=== PATIENT | male | born 1995 | race Caucasian/White ===

== ENCOUNTER 2021-04-18 02:15 | Emergency (ER) | payer MEDICAID, SELFPAY ==
--- NOTE | ~2021-04-18 | XR_ITS ---
EXAMINATION: XR HAND, RIGHT: 3 VIEWS CLINICAL INFORMATION: Pain status post fall COMPARISON: None XR/XR hand wrist RT FINDINGS/IMPRESSION: * Acute nondisplaced obliquely oriented fracture through the second proximal metacarpal metaphysis. * Acute nondisplaced obliquely oriented fracture through the third proximal metacarpal diametaphysis. * Acute minimally displaced transversely oriented fracture through the fourth metacarpal diaphysis. * No additional fractures. * Soft tissue swelling dorsal to the metacarpals. * No radiopaque foreign body.
[2021-04-18 02:24] VITALS: BP 114/72; PULSE 82; RESP 16; TEMP 37.2; O2SAT 98; BMI 31.0
[2021-04-18 04:18] VITALS: BP 106/73; PULSE 73; RESP 16; TEMP 36.7; O2SAT 96
[2021-04-18 05:49] VITALS: BP 105/58; PULSE 65; RESP 16; TEMP 36.6; O2SAT 99
--- NOTE | 2021-04-18 07:14 | ED_ITS ---
HPI - Extremity Problem General Chief complaint: Extremity Injury, Upper Stated complaint: broken hand Time Seen by Provider: 04/18/21 07:12 Source: patient Mode of arrival: ambulatory Limitations: no limitations History of Present Illness HPI Narrative: 26-year-old male came in for evaluation of right hand pain. Patient had a mechanical fall early this morning at 03:00, landed on his right hand causing pain to the right hand/wrist and swelling. Patient is right-hand. No head injury, no LOC. no C-spine tenderness Related Data Allergies Allergy/AdvReac Type Severity Reaction Status Date / Time No Known Allergies Allergy Verified 04/18/21 02:24 Review of Systems Review of Systems: All other systems are reviewed and are negative Constitutional: Reports as per HPI and Reports no additional constitutional complaints Eyes: Reports as per HPI and Reports no additional eye complaints Reports system reviewed and no additional complaints, except as documented Cardiovascular: Reports as per HPI and Reports no additional cardiovascular complaints Respiratory: Reports as per HPI and Reports no additional respiratory complaints Gastrointestinal: Reports as per HPI and Reports no additional gastrointestinal complaints Genitourinary: Reports no additional female genitourinary complaints Musculoskeletal: Reports no additional musculoskeletal complaints Skin/Breast: Reports system reviewed and no additional complaints, except as docu Psychiatric: Reports no additional psychiatric complaints Endocrine: Reports no additional endocrine complaints Hematologic/Lymphatic: Reports no additional hematologic/lymphatic complaints Allergic/Immunologic: Reports no additional allergic/immunologic complaints Reports system reviewed and no additional complaints, except as documented and Reports Abnormal speech present [facility] Past Medical History Medical History Asthma Social History Social History Advance Directives: No Advance Directives Information Provided: Yes Physical Exam Vital Signs: Vital Signs: Last Vital Signs Temp 97.9 F 04/18/21 05:49 Pulse 65 04/18/21 05:49 Resp 16 04/18/21 05:49 BP 105/58 L 04/18/21 05:49 Pulse Ox 99 04/18/21 05:49 Body Mass Index 31.0 Vital signs have been reviewed as appeared to be correct. Blood pressure normal. Heart rate normal. Respiration rate normal. Temperature normal. Oxygen saturation normal. Appearance: Alert. Oriented X3. No acute distress. Head: Normal external exam. Normocephalic. Atraumatic. No Willett signs noted. No raccoon eyes noted Eyes: PERRLA. EOMI. Conjunctiva and sclera normal. Eyelids normal. ENT: TM's Normal. Pharynx normal. Uvula midline. Moist mucous membranes. No tr ismus noted. No drooling noted. No muffled voice noted. Neck: Normal inspection. Neck supple. FROM. No adenopathy. Thyroid Normal. No meningeal signs. No neck mass noted. CVS: Normal heart rate and rhythm. Heart sound normal. No murmurs noted. Pulses normal throughout. Respiratory: No respiratory distress. Painless inspiration. Breath sounds normal. No wheezes/rales/rhonchi noted. Chest nontender. No accessory muscle usage noted or decreased air movement noted. Abdomen: Soft and nontender. Bowel sounds normal in all 4 quadrants. No distention noted. No organomegaly noted. No visible injury noted. Back: No CVA tenderness. Full range of motion noted. Skin: Skin warm and dry. Normal skin color. Normal skin turgor. No rashes/lesions/lacerations noted. Extremities: Right hand: Diffuse swelling of the right hand, tenderness over the metacarpal area diffusely, no apparent deformity. Neurovascularly intact. Neuro: Oriented X 3. Cranial nerve exam: II-XII are grossly intact No motor deficit. No sensory deficit. Reflexes normal. Course Course Course Narrative: Assessment and plan. 26-year-old male sustained a mechanical fall, had multiple metacarpal bones fracture as a result. Ice/NSAIDs/splint/follow-up with ortho. MDM - Extremity (Nontraumatic) Imaging Data Right hand/wrist x-ray: Radiologist's impression: *? Acute nondisplaced obliquely oriented frac ture through the second proximal metacarpal metaphysis. *? Acute nondisplaced obliquely oriented fracture through the third proximal metacarpal diametaphysis. *? Acute minimally displaced transversely oriented fracture through the fourth metacarpal diaphysis. *? No additional fractures. *? Soft tissue swelling dorsal to the metacarpals. *? No radiopaque foreign body. ? Discharge Plan Discharge Clinical Impression: Fracture of hand Patient Disposition: Home, Self-Care Instructions: Hand Fracture (ED) Referrals: Chelsey Potter MD [Physician] - 2 days
[2021-04-18] MEDS: Ibuprofen 600 MG TABLET PO (08:02)
== END 2021-04-18 08:06 | disposition home or self-care (01) ==
PROVIDERS: Emergency Provider Emergency Medicine
DX: S62.390A Other fracture of second metacarpal bone, right hand, initial encounter for closed fracture (principal); S62.392A Other fracture of third metacarpal bone, right hand, initial encounter for closed fracture; S62.394A Other fracture of fourth metacarpal bone, right hand, initial encounter for closed fracture; W19.XXXA Unspecified fall, initial encounter; Y93.9 Activity, unspecified; Y92.9 Unspecified place or not applicable; Y99.9 Unspecified external cause status
CPT/HCPCS: 73110; 73130; 99284

== ENCOUNTER 2021-04-24 08:18 | Outpatient (REF) | payer MEDICAID, SELFPAY ==
--- NOTE | ~2021-04-24 | XR_ITS ---
EXAMINATION: XR HAND, RIGHT CLINICAL INFORMATION: Right hand pain COMPARISON: 04/18/2021 TECHNIQUE: PA, lateral, and oblique views of the right hand. FINDINGS: Mineralization is normal. There is an essentially nondisplaced fracture through the proximal metaphysis of the second metacarpal. There is an essentially nondisplaced oblique fracture through the proximal metadiaphysis of the third metacarpal. There is a small adjacent ossicle on the volar aspect. There is an essentially nondisplaced fracture through the shaft of the fourth metacarpal now appearing in anatomic alignment. There is a fracture of the base of the fifth distal phalanx with a distracted fragment on the dorsal aspect. No other fractures are seen. There is no dislocation. The joint spaces are preserved. There is marked soft tissue swelling on the dorsum of the hand. XR/XR hand RT min 3V IMPRESSION: Essentially nondisplaced fractures of the second, third, and fourth metacarpals. Distracted fracture from the dorsal aspect of the base of the fifth proximal phalanx.
== END 2021-04-24 08:19 | disposition home or self-care (01) ==
LOC: HO.HOSX 08:18
PROVIDERS: Visit Provider Physician Assistant
DX: M20.011 Mallet finger of right finger(s) (principal); S62.308A Unspecified fracture of other metacarpal bone, initial encounter for closed fracture
CPT/HCPCS: 73130; 99202

== ENCOUNTER 2021-04-30 07:53 | Day surgery (SDC) | payer MEDICAID, SELFPAY ==
--- NOTE | 2021-04-29 09:32 | HO.ANESPROP2 ---
Documented by User: Tasha Barbosa NP 04/29/21 09:32 HPI - Anesthesia Eval Consult details Narrative: 26yo M for Right Finger Fx Closed Pinning small finger PMFSH Active Problems Active Problems: All Active Problems (Updated 04/26/21 @ 09:54 by Cristina Ca PA-C) Closed fracture of 4th metacarpal (Acute) Closed fracture of 3rd metacarpal (Acute) Closed fracture of 2nd metacarpal (Acute) Mallet deformity of right little finger (Acute) Past Medical History Medical History Asthma Surgical History Surgical History No pertinent past surgical history Social History Social History Alcohol intake: never Patient Tobacco Use Status: Former Tobacco user Quit Date: 4 yrs ago, vaping since Tobacco use type: Cigarette Use of substances other than those prescribed or required for medical reasons: Yes Substance Use Frequency: Daily Are you DNR?: No Advance Directives: No Advance Directives Information Provided: Yes Current occupational status: unemployed Current occupation: rt hand Meds Allergies Allergy/AdvReac Type Severity Reaction Status Date / Time No Known Allergies Allergy Verified 04/24/21 13:08 Exam Exam Date and Time: April 29, 2021 0932 Assessment and Plan Assessment Anesthesia Assessment: Chart Reviewed Documented by User: Ronen East MD 04/30/21 10:10 PMFSH Past Medical History Medical History Asthma Family History Family history of problems with anesthesia: No Surgical History Surgical History No pertinent past surgical history History of Problems with Anesthesia: No Social History Social History Alcohol intake: never Patient Tobacco Use Status: Former Tobacco user Quit Date: 4 yrs ago, vaping since Tobacco use type: Cigarette Use of substances other than those prescribed or required for medical reasons: Yes Substance Use Frequency: Daily Are you DNR?: No Advance Directives: No Advance Directives Information Provided: Yes Current occupational status: unemployed Current occupation: rt hand Meds Allergies Allergy/AdvReac Type Severity Reaction Status Date / Time No Known Allergies Allergy Verified 04/24/21 13:08 Exam Airway Mallampati Class: II TM Dist: >3cm Neck ROM: Full Loose/Missing/Broken Teeth: Yes Assessment and Plan Assessment Anesthesia Assessment: Anesthesia Plan Discussed Final Anesthetic Review Family History of Problems with Anesthesia: No History of Problems with Anesthesia: No NPO: Yes ASA Class: II Final Preanesthetic Review: No Changes in Pt Med Stat, Meds/Allgs Chart Reviewed, Consent Obtained/Reviewed and Anes Risks/Benef Reviewed Patient Risk: Low Procedure Risk: Low Anesthetic Plan Anesthetic Plan: GA Disposition: Standard PACU
[2021-04-30] VITALS (8 sets, daily range): BP systolic 98–107; BP diastolic 43–62; PULSE 55–66; RESP 16; TEMP 36.5–36.6; O2SAT 95–100; BMI 29.5
--- NOTE | ~2021-04-30 | FL_ITS ---
EXAMINATION: XR FLUOROSCOPY WITH IMAGES CLINICAL INFORMATION: Fracture 5th distal phalanx. COMPARISON: Previous x-rays 04/24/2021 TECHNIQUE: Fluoroscopy performed by Dr. Potter. Fluoroscopy time: 38 seconds DAP: [id number] Images: 3 FINDINGS: Images demonstrate a K-wire or pin across the DIP joint of the 5th finger. The displaced fracture of the dorsal distal phalanx at the DIP joint appears unchanged. Nondisplaced 3rd and 4th metacarpal fractures, unchanged. Nondisplaced fracture of the base of the 2nd metacarpal bone not well visualized. FL/FL guidance in OR IMPRESSION: Fluoroscopic guidance for arthrodesis of the DIP joint of the 5th finger.
[2021-04-30] MEDS: Lactated Ringers 1,000 ML 100 ML IVCONT (08:39)
--- NOTE | 2021-04-30 09:41 | MHC.SHP ---
Pre-Procedural Eval Section A Date of Service: 04/30/21 The patient is an INPATIENT: No Changes since office visit: No Cold of Flu in the past 2 weeks, No New Medical Problems, No Changes in Medication and No Patient answered all questions The History & Physical has been completed within 30 days and I have reviewed it.: Yes Section B Chief Complaint: mallet finger Allergies: Allergies Allergy/AdvReac Type Severity Reaction Status Date / Time No Known Allergies Allergy Verified 04/24/21 13:08 Plan I have reviewed the history and physical and performed a pertinent physical examination on my patient. No changes have occurred unless specified.
--- NOTE | 2021-04-30 09:41 | W.PM.OPN ---
Operative Note Operative Note Date of Service: 04/30/21 Narrative: Operative Note Narrative: Preop diagnosis: 1. Right small finger displaced intra-articular fracture of the base of the distal phalanx Postop diagnosis: Same Procedure: 1. Right small finger distal phalanx closed reduction percutaneous pinning 2. Ulnar nerve block Surgeon: Chelsey Potter MD Anesthesia: General Findings: finger fracture Implants: 0.045 K-wires times [ ] Tourniquet time: None EBL: Minimal Specimen: None Drains: None Complications: None Disposition: Brought to the recovery room in stable condition Plan: Follow-up in 10-14 days for a wound check, postop radiographs and for placement in a short-arm cast for his 2 metacarpal fractures, and a finger splint for the right small finger. He should be taught pin site care. Anticipate K-wire removal in 5 weeks postoperatively based on interval bony healing Anticipate removal of the short-arm cast at between 4 and 5 weeks post injury. Educate the patient that full fracture healing anticipated in approximately 8-12 weeks. Indications: The patient is 26 years old with fractures of the right 2nd 3rd and 4th metacarpal shaft fractures that are being managed non operatively, and a mallet fracture of the right small finger distal phalanx that is displaced. . The risks and benefits of operative treatment, including but not limited to risk of damage to blood vessels, nerves, tendons, infection, recurrence, delayed or nonunion of fracture, persistent pain or numbness, incomplete resolution of preoperative symptoms, or need for further surgery were discussed with the patient and they wished to proceed with surgery. Procedure: Once consent was obtained patient was brought back to the operating suite and placed in the operating table in a supine position. . Perioperative antibiotics and general anesthesia was administered by the anesthesia team. A tourniquet was applied to the proximal aspect of the right upper extremity and the limb was prepped and draped in a standard surgical fashion. Tourniquet was not inflated during the case. The FluoroScan was used during the case to assist with our fracture reduction and placement of all implants. A closed reduction was performed on the patient's right small finger distal phalanx fracture. I placed a single 0.045 K-wire retrograde through the tip of the right small finger distal phalanx. This was advanced proximally and across the D IP joint while the D IP joint was being held in extended position. The dorsally displaced fragment of the base of the distal phalanx was now noted to sit in a reduced position against the dorsal base of the distal phalanx. Once satisfied with our reduction and placement of this K-wire the pin was bent cut short and had a pin cap applied. Care was taken with the 2nd 3rd and 4th metacarpal fractures. Fluoroscopic images of these fractures were obtained at the end of the case and alignment found to be satisfactory. The wounds were copiously irrigated with normal saline. An ulnar nerve block was then performed by infiltrating about the ulnar nerve at the wrist with some 1% lidocaine with epinephrine for postop pain control. A Sterile dressing and short volar splint extending to the forearm was applied to protect the metacarpal fractures. A finger splint was applied to the small finger. The patient appears to have tolerated the procedure well and with no complications. All digits were well vascularized at the conclusion of the case.
== END 2021-04-30 12:23 | disposition home or self-care (01) ==
PROVIDERS: Visit Provider Orthopaedic Surgery
PROC: (CPT 26756; principal; 2021-04-30 09:00)
DX: M20.011 Mallet finger of right finger(s) (principal); S62.636A Displaced fracture of distal phalanx of right little finger, initial encounter for closed fracture; W18.30XA Fall on same level, unspecified, initial encounter; Y93.9 Activity, unspecified; Y92.480 Sidewalk as the place of occurrence of the external cause; Y99.8 Other external cause status; J45.909 Unspecified asthma, uncomplicated; Z87.891 Personal history of nicotine dependence
CPT/HCPCS: 26756; J0690; J1100; J2250; J2405; J3010

== ENCOUNTER 2021-05-13 11:00 | Outpatient (REF) | payer MEDICAID, SELFPAY ==
--- NOTE | ~2021-05-13 | XR_ITS ---
EXAMINATION: XR HAND, RIGHT CLINICAL INFORMATION: Follow up fracture. COMPARISON: Previous x-rays, most recent 04/30/2021. TECHNIQUE: PA, lateral, and oblique views of the right hand. FINDINGS: There is arthrodesis of the DIP joint of the right fifth finger. There is a fracture of the proximal aspect of the distal phalanx intra-articular with the DIP joint. There is a minimally displaced dorsal fracture fragment best appreciated on the lateral view that appears unchanged. There are nondisplaced fractures of the shafts of the third and fourth and question second metacarpal bones. These demonstrate increased bony callus formation suggestive of healing. Soft tissues are unremarkable. XR/XR hand RT min 3V IMPRESSION: Arthrodesis of the DIP joint of the right fifth finger. No change in fractures of the distal phalanx of the fifth finger and second through fourth metacarpal shafts.
== END 2021-05-13 11:01 | disposition home or self-care (01) ==
LOC: HO.HOSX 11:00
PROVIDERS: Visit Provider Orthopaedic Surgery
DX: S62.308D Unspecified fracture of other metacarpal bone, subsequent encounter for fracture with routine healing (principal); M20.011 Mallet finger of right finger(s)
CPT/HCPCS: 73130; 99212

== ENCOUNTER 2021-05-27 09:03 | Outpatient (REF) | payer MEDICAID, SELFPAY ==
--- NOTE | ~2021-05-27 | XR_ITS ---
EXAMINATION: XR HAND, RIGHT CLINICAL INFORMATION: Pain in right hand. COMPARISON: X-ray right hand 05/13/2021 and April 2021 TECHNIQUE: PA, lateral, and oblique views of the right hand. FINDINGS: Calcification noted across the previously described mid diaphyseal 4th metacarpal fracture and proximal metadiaphyseal 3rd metacarpal fracture. The fractures are nondisplaced without change in alignment. K-wire passes through the DIP joint, as before, with no change in alignment. Dorsal intra-articular fracture fragment redemonstrated but less conspicuous consistent with some interval partial healing of the fracture. Orthopedic dressing also noted. XR/XR hand RT min 3V IMPRESSION: Postoperative changes. Healing fracture at the base of the distal phalanx of the small finger. Healing 3rd and 4th metacarpal fractures.
== END 2021-05-27 09:04 | disposition home or self-care (01) ==
LOC: HO.HOSX 09:03
PROVIDERS: Visit Provider Orthopaedic Surgery
DX: M20.011 Mallet finger of right finger(s) (principal); S62.300D Unspecified fracture of second metacarpal bone, right hand, subsequent encounter for fracture with routine healing; S62.302D Unspecified fracture of third metacarpal bone, right hand, subsequent encounter for fracture with routine healing; S62.304D Unspecified fracture of fourth metacarpal bone, right hand, subsequent encounter for fracture with routine healing; X58.XXXD Exposure to other specified factors, subsequent encounter
CPT/HCPCS: 73130; 99212